=== PATIENT | female | born 1965 | race Hispanic/Latino ===

== ENCOUNTER → 2020-05-13 | Emergency (ER) | payer MEDICARE ==
[~2020-05-13] VITALS: Ht 157.5 cm; Wt 61.2 kg
[~2020-05-13] MED LIST: CIPRO500 MG PO; LIDOCAINE VISC 2% SOLN 15 ML UDC ONE; MAGNESIUM/ALUMINUM/SIMETHICONE 30 ML UDC ONE; METHYLPREDNISOLONE SOD SUCC 125 MG/2ML VIAL ONE; ONDANSETRON HCL INJ 2MG/ML 2ML 2 MG/ML VIAL ONE; SODIUM CHLORIDE 0.9% 1000ML 1,000 ML ONE
--- NOTE | 2020-05-13 18:55 | Emergency Department Note ---
History of Present Illnes History of Present Illness Chief Complaint: left low back pain History of Present Illness This is a 54 year old female who since was a 2 day history of gradually progressing left low back/flank pain similar to prior urinary tract infections. Denies any fever or chills. She denies any dysuria or hematuria. Denies any heavy lifting or stress activity. Nausea and all pain. They said she has GERD daily does not well-controlled medication. She has some nausea which is her baseline. Nausea and diarrhea constipation. Denies numbness tingling or weakness of her LEs. She denies any loss of bowel or bladder function Historian: Patient Arrival Mode: Car Rn Staffing Required: No Onset (how long ago): day(s) (2) Radiation: Reports non-radiation Severity: mild Duration (how long): day(s) (2) Timing of current episode: constant Progression: worsening Chronicity: recurrent Context: Denies recent illness Relieving factors: none Exacerbating factors: movement Associated symptoms: Reports denies other symptoms; Denies chest pain, Denies cough, Denies fever/chills Treatments prior to arrival: other (Tylenol) Past Medical/Family History Physician Review I have reviewed the patient's past medical and family history. Any updates have been documented here. Past Medical History Recent Fever: No Clinical Suspicion of Infectio: No New/Unexplained Change in Ment: No Past Medical History: Hypertension, Diabetes, Anxiety, Depression Other Medical History: h-pyloric, GERD Past Surgical History: Hysterectomy Other Surgery: hand x2 (trigger finger) Social History Smoking Cessation: Never Smoker Counseling Performed: No Alcohol Use: None Any Illegal Drug Use: No Physically hurt or threatened: No Other Any Pre-Existing Lines (PICC,: No Review of Systems Review of Systems Constitutional: Denies diaphoresis, Denies fever, Denies malaise, Denies weakness Cardiovascular: Denies chest pain, Denies edema, Denies palpitations, Denies syncope Respiratory: Denies chest congestion, Denies cough, Denies hemoptysis, Denies pain on inspiration, Denies pain with cough Gastrointestinal: Reports abdominal pain, Reports nausea (at baseline from GERD); Denies constipation, Denies diarrhea, Denies vomiting Genitourinary: Reports no symptoms, Reports other; Denies discharge (no vaginal discharge, no vaginal itching), Denies dysuria, Denies hematuria Musculoskeletal: Reports no symptoms, Reports back pain Integumentary: Denies rash Neurological: Reports no symptoms Hematological/Lymphatic: Denies easy bleeding, Denies easy bruising Physical Exam Related Data Triage Vital Signs Vital Signs Date Time Temp Pulse Resp B/P (MAP) Pulse Ox O2 Delivery O2 Flow Rate FiO2 05/13/20 18:19 98.4 93 17 114/71 98 Physical Exam CONSTITUTIONAL Constitutional: Present well-developed, Present well-nourished HENT HENT: Present normocephalic, Present atraumatic HENT L/R: Present left ext ear normal, Present right ext ear normal EYES Eyes: Reports conjunctivae normal NECK Neck: Present ROM normal, Present supple PULMONARY Pulmonary: Present effort normal, Present breath sounds normal; Absent respiratory distress CARDIOVASCULAR Cardiovascular: Present regular rhythm, Present heart sounds normal, Present capillary refill normal, Present normal rate GASTROINTESTINAL Abdominal: Present soft, Present nontender, Present bowel sounds normal, Present mass (no pulsatile mass), Present left CVA tenderness; Absent right CVA tenderness GENITOURINARY SKIN Skin: Absent rash MUSCULOSKELETAL Musculoskeletal: Present ROM normal; Absent edema NEUROLOGICAL Neurological: Present alert, Present oriented x 3, Present DTRs normal, Present no gross motor or sensory deficits, Present other (no pain with straight leg raise bilaterally.); Absent sensory deficit, Absent abnormal gait PSYCHOLOGICAL Psychological: Present mood/affect normal Results Laboratory Lab results reviewed: Yes Laboratory comments UA: trace eyal, otherwise negative Assessment & Plan Medical Decision Making MDM Differential diagnosis includes, but is not limited to: Kidney stone, urinary tract infection, pyelonephritis, AAA, lumbar strain/sprain, herniated disc. Patient with no pulsatile mass or other signs of AAA. Patient with no hematuria and does not clinically appear to have kidney stone. She states her symptoms are exactly like previous UTIs. Patient was only trace leukocytes, however given her symptoms willl treat for UTI and give strict return precautions and prompt follow-up. Assessment & Plan Final Impression: (1) UTI (urinary tract infection) (2) Low back pain Depart Disposition: HOME, SELF-CARE Last Vital Signs Date Time Temp Pulse Resp B/P (MAP) Pulse Ox O2 Delivery O2 Flow Rate FiO2 05/13/20 18:19 98.4 93 17 114/71 98 Home Meds Active Scripts Ciprofloxacin Hcl (CIPRO) 500 Mg Tablet, 500 MG PO BID, #28 MG 0 Refills Prov:ANDREEA SHI MD 05/13/20 ANDREEA SHI MD May 13, 2020 18:37
--- OUTSIDE RECORDS SUMMARY | 2020-05-13 21:39 | XMS REPORT | Clinical Summary ---
Author Author [facility] Organization [facility] Address Unknown Phone Unavailable Care Team Providers Care Chief Optometry Service Name Role Phone PCP Unavailable Allergies Comments Active Allergy Reactions Severity Noted Date Penicillins 10/16/2018 Medications End Date Status Medication Sig Dispensed Refills Start Date Active atropine (ISOPTO Instill 1 5 mL 0 ATROPINE) 1 % ophthalmic Drop in right 8 solutionIndications: eye 2 times Toxoplasma daily. chorioretinitis, Panuveitis of right eye Active predniSONE (DELTASONE) 10 Take 4 120 tablet 1 mg tabletIndications: tablets by 8 Panuveitis of right eye mouth daily. Active prednisoLONE acetate Instill 1 5 mL 1 10/01 (PRED FORTE) 1 % Drop in each 8 ophthalmic eye 4 times suspensionIndications: daily. Panuveitis of right eye Active atropine (ISOPTO Instill 1 15 mL 5 ATROPINE) 1 % ophthalmic Drop in right 9 solutionIndications: eye 2 times Toxoplasma daily. chorioretinitis Active prednisoLONE acetate Instill 1 5 mL 1 11/07 (PRED FORTE) 1 % Drop in right 9 ophthalmic eye 4 times suspensionIndications: daily. Uveitis Active predniSONE (DELTASONE) 20 Take 3 18 tablet 0 11/07/201 mg tabletIndications: tablets by 9 Toxoplasma mouth daily. chorioretinitis, Panuveitis of right eye Active azithromycin (ZITHROMAX) Take 1 tablet 20 tablet 0 250 mg tabletIndications: by mouth 9 Toxoplasma daily. 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 Last Filed Vital Signs Not on file Plan of Treatment Health Maintenance Due Date Last Done Comments DM HGBA1C (Yearly) 1966 DM Foot Exam (Yearly) 1984 DM Microalbumin Urine 1984 Scrn (Yearly) Cervical Cancer Scrn (3 1987 Yrs) Breast Cancer Scrn 2006 (Yearly) Colorectal Cancer Scrn 2016 Annual (FIT/FOBT) Age 50 to 75 DM Retinal Exam (Yearly) 10/16/2019 10/16/2018, 10/01/2018, 09/25/2018, Additional history exists IMM Influenza Seasonal 07/14/2020 Oct to December (>/= 19 yrs) Results Not on fileafter 05/13/2019 Insurance Type Payer Benefit Subscriber ID Effective Phone Address Plan / Dates Group [facility] SELF-PAY SELF-PAY xxxxxxxxx 2018- [phone] [id number] [place] [address]
--- OUTSIDE RECORDS SUMMARY | 2020-05-13 21:39 | XMS REPORT | Continuity of Care Document ---
Author Author [facility] t Organization [facility] Address 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 associated with type 2 diabetes mellitus Stable proliferative diabetic retinopath y of both eyes associated with type 2 diabetes mellitus Disease Active 2018-07-21 00:00: 00 [facility] Pain in right eye Pain in right eye Disease Active 2018-07-19 00:00:00 [facility] Uveitis Uveitis Disease Active [facility] Allergies, Adverse Reactions, Alerts Allergy Name Allergy Type Status Severity Reaction(s) Onset Date Inacti ve Date Treating Clinician Comments Source Penicillins DA Active SV 2019-10-30 00:00:00 [facility] metoclopramide DA Active SV 2019-10-30 00:00:00 [facility] Penicillins DA Active U 2019-07-19 00:00:00 [facility] metoclopramide DA Active U 2019-07-19 00:00:00 [facility] Penicillins DA Active SV 2019-07-12 00:00:00 [facility] metoclopramide DA Active SV 2019-07-12 00:00:00 [facility] Penicillins Propensity to adverse reactions to drug Active 2018-10-16 00:00:00 [facility] Penicillins DA Active SV 2018-07-18 00:00:00 [facility] metoclopramide DA Active SV 2018-07-18 00:00:00 [facility] Penicillins DA Active SV 2018-03-25 00:00:00 [facility] metoclopramide DA Active SV 2018-03-25 00:00:00 [facility] Social History Social Habit Start Date Stop Date Quantity Comments Source Sex Assigned At [facility] Smoking Status Start Date Stop Date Source Never smoker [facility] Medications Ordered Medication Name Filled Medication Name Start Date Stop Da te Current Medication? 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 [facility] prednisoLONE acetate (PRED FORTE) 1 % ophthalmic suspension 2018-11-07 00:00:00 Yes Uveitis 1[drp] Instill 1 Drop in right eye 4 times daily. [facility] predniSONE (DELTASONE) 20 mg tablet 2018-11-07 00:00:00 Yes Panuveitis of right eye 60mg QD Take 3 tablets by mouth daily. 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 [facility] predniSONE (DELTASONE) 10 mg tablet 2018-10-01 00:00:00 Yes Panuveitis of right eye 40mg QD Take 4 tablets by mouth daily. [facility] prednisoLONE acetate (PRED FORTE) 1 % ophthalmic suspension 2018-10-01 00:00:00 Yes Panuveitis of right eye 1[drp] Instill 1 Drop in each eye 4 times daily. [facility] atropine (ISOPTO ATROPINE) 1 % ophthalmic solution 2018-09 00:00:00 Yes Panuveitis of right eye 1[drp] Q.5D Instill 1 Drop in right eye 2 times daily. [facility] Procedures This patient has no known procedures. Plan of Care Planned Activity Planned Date Details Comments Source Future Scheduled Test 2020-07-14 00:00:00 IMM Influenza Seas onal Jul to December (>/= 19 yrs) [code = IMM Influenza Seasonal Jul to December (>/= 19 yrs)] [facility] Scheduled Test 2019-10-16 00:00:00 DM Retinal Exam (Y early) [code = DM Retinal Exam (Yearly)] [facility] Scheduled Test 2016 00:00:00 Screening for kwabena gnant neoplasm of colon (procedure) [code = 034782613] [facility] Scheduled Test 2006 00:00:00 Breast Cancer Scrn (Yearly) [code = Breast Cancer Scrn (Yearly)] [facility] Scheduled Test 1987 00:00:00 Screening for kwabena gnant neoplasm of cervix (procedure) [code = 001286459] [facility] Scheduled Test 1984 00:00:00 DM Foot Exam (Year ly) [code = DM Foot Exam (Yearly)] [facility] Scheduled Test 1984 00:00:00 Urine screening fo r protein (procedure) [code = 489953535] [facility] Scheduled Test 1966 00:00:00 Hemoglobin A1c jaqueline surement (procedure) [code = 20918474] [facility] Encounters Start Date/Time End Date/Time Encounter Type Admission Type [facility] Care Department Encounter ID Source 2018-11-07 09:53:31 2018-11-07 09:53:31 Emergency [facility] MED [id number] [facility] 2018-11-07 00:00:00 2018-11-07 00:00:00 Emergency [facility] [id number] [facility] 2018-10-29 00:00:00 2018-10-29 00:00:00 Outpatient [facility] [id number] [facility] 2018-10-16 10:50:01 2018-10-16 10:50:01 Outpatient [facility] [id number] [facility] 2018-10-16 00:00:00 2018-10-16 00:00:00 Outpatient [facility] [id number] [facility] 2018-10-01 15:39:09 2018-10-01 15:39:09 Outpatient [facility] [id number] [facility] 2018-10-01 12:40:57 2018-10-01 12:40:57 Outpatient [facility] [id number] [facility] 2018-09-25 11:01:37 2018-09-25 11:01:37 Outpatient [facility] [id number] [facility] 2018-09-19 14:07:23 2018-09-19 14:07:23 Outpatient [facility] [id number] [facility] 2018-09-18 16:23:31 2018-09-18 16:23:31 Outpatient [facility] [id number] [facility] 2018-09-11 10:30:44 2018-09-11 10:30:44 Outpatient [facility] [id number] [facility] 2018-09-11 10:30:40 2018-09-11 10:30:40 Outpatient [facility] [id number] [facility] 2018-08-28 09:53:20 2018-08-28 09:53:20 Outpatient [facility] [id number] [facility] 2018-08-28 09:22:42 2018-08-28 09:22:42 Outpatient [facility] [id number] [facility] 2018-08-21 11:02:19 2018-08-21 11:02:19 Outpatient [facility] [id number] [facility] 2018-08-21 11:02:17 2018-08-21 11:02:17 Outpatient [facility] [id number] [facility] 2018-08-21 00:00:00 2018-08-21 00:00:00 Outpatient [facility] [id number] [facility] 2018-08-21 00:00:00 2018-08-21 00:00:00 Outpatient [facility] [id number] [facility] 2018-08-14 12:20:23 2018-08-14 12:20:23 Outpatient [facility] [id number] [facility] 2018-08-14 10:12:49 2018-08-14 10:12:49 Outpatient [facility] [id number] [facility] 2018-08-14 09:00:01 2018-08-14 09:00:01 Outpatient [facility] [id number] [facility] 2018-08-14 00:00:00 2018-08-14 00:00:00 Outpatient [facility] [id number] [facility] 2018-08-14 00:00:00 2018-08-14 00:00:00 Outpatient [facility] [id number] [facility] 2018-07-25 15:25:08 2018-07-25 15:25:08 Outpatient [facility] [id number] [facility] 2018-07-25 14:28:51 2018-07-25 14:28:51 Outpatient [facility] [id number] [facility] 2018-07-21 14:45:54 2018-07-21 14:45:54 Outpatient [facility] [id number] [facility] 2018-07-18 20:04:00 2018-07-18 20:04:00 Emergency [facility] [id number] [facility] Results Test Description Test Time Test Comments Results Result Comments Source CT ABD/PEL WO CONTRAST-HOPD 2020-04-09 20:05:00 [place] [address] Patient Name: MALAIKA GIBBS MR #: [id number] : 1965 Age/Sex: 54/F Req #: [id number] Adm Physician: Ordered by: ASHLIE ARROYO MD Report #: [id number] Location: [facility] Room/Bed: Procedure: [id number] HOPD/CT ABD/PEL WO CONTRAST-HOPD Exam Date: 04/09/20 Exam Time: 1922 REPORT STATUS: Signed EXAMINATION: CT of the abdomen and pelvis without contrast. TECHNIQUE: Spiral CT images of the abdomen and pelvis were performed from the lung bases to the lesser trochanters. No intravenous contrast was given per renal stone protocol. Coronal and sagittal reformatted images were obtained. COMPARISON: None. CLINICAL HISTORY:Abdominal pain, left flank pain since 3 hours ago DISCUSSION: ABSENCE OF INTRAVENOUS CONTRAST DECREASES SENSITIVITY FOR DETECTION OF FOCAL LESIONS AND VASCULAR PATHOLOGY. ABDOMEN/PELVIS: LOWER THORAX: Lung bases are clear. Atherosclerotic calcification of the coronary arteries. HEPATOBILIARY: No focal hepatic lesions. No intra or extrahepatic biliary ductal dilation. GALLBLADDER: Cholecystectomy clips. SPLEEN: No splenomegaly. PANCREAS: No focal masses or ductal dilatation. ADRENALS: No adrenal nodules. KIDNEYS/URETERS: No renal or ureteral calculi, hydronephrosis or obstruction. No contour abnormalities or significant perinephric stranding. Extensive renal vascular calcifications. PELVIC ORGANS/BLADDER: Bladder is unremarkable, without focal lesions, wall thickening or stones. Uterus is absent. Multiple pelvic phleboliths. No adnexal masses. PERITONEUM/RETROPERITONEUM: No free air or fluid. LYMPH NODES: No intra-abdominal,retroperitoneal, pelvic or inguinal lymphadenopathy. VESSELS: Marked atherosclerotic calcification of the aortic branches, particularly celiac trunk and splenic artery, SMA, SEBASTIÁN and iliac vessels, as well as bilateral renal arteries. GI TRACT: No bowel dilation or evidence of obstruction. Appendix is well identified and normal in caliber. No pericolonic inflammatory changes. No wall thickening. Intraluminal 1.5 cm fat density structures in the distal small bowel (series 2, images 47 and 46), may represent small lipomas or pill material. 9 mm oval shaped intraluminal hyperdensities in the distal small bowel (series 2, image 44) likely represent undigested pill material. BONES AND SOFT TISSUES: No aggressive lytic or suspicious focal sclerotic lesions soft tissues are grossly unremarkable.. IMPRESSION: 1. No renal, ureteral or bladder calculi, hydronephrosis or obstruction. No acute abdominopelvic abnormalities in this noncontrast exam. 2.. Marked atherosclerotic calcification of the aortic branches, particularly the celiac trunk, splenic artery, SMA, SEBASTIÁN and iliac vessels, greater than expected for the patient's age. Signed by: Dr. Daniel Perez M.D. on 04/09/2020 8:12 PM Dictated By: DANIEL PEREZ MD Elect ronically Signed By: DANIEL PEREZ MD on 04/09/202011 Transcribed By: YAYO on 04/09/202011 COPY TO: ASHLIE ARROYO MD GLUBED 2020-03-17 16:46:00 Test Item GLUBED (test code = GLUBED) 102 mg/dL 74-106 N Performed by certified de ionizer operator at [facility] [id number] 15:48:00* Test Item Value Reference Range Interpretation Comments GLUBED (test code = GLUBED) 264 mg/dL 74-106 H Performed by certified de ionizer operator at [facility] - MRI BRAIN W/O [id number] 12:20:00 FAX: Adina Ortega [phone] [place]: St: [facility] FAX: Harsh Cruz II, MD Name: MALAIKA GIBBS [employer] : 1965 Age/S: 54/F [address] [facility] Unit #: [id number] Loc: [address] [place] [address] Phys: Adina Stoddard MD Acct: [id number] Dis Date: Status: ADM IN PHONE #: [phone] Exam Date: 03/17/2020 1150 FAX #: [phone] Reason: TIA EXAMS: CPT CODE: [id number] MRI BRAIN W/O CONTRAST 16752 HISTORY: TIA. COMPARISON: Head CT from previous day. Location: [facility]. MRI brain without contrast: No acute territorial vascular or acute lacunar infarction. No MR e vidence for hemorrhage. No extra-axial fluid collections. Mild white matte r ischemic disease in the midbrain and scattered lesions in the centrum se miovale white matter. No herniation, hydrocephalus or midline shift. Fourt h ventricle is midline. The expected flow-voids are noted within t he major intracranial vasculature. VII and VIII nerve complex are symmetri amaury and normal. Mastoid air cells are clear. Sinuses are clear with mucosa l thickening of the ethmoid air cells. Intraorbital contents are unremarka ble. Midbrain, mayra and medulla are without mass effect. Symmetric al hippocampi without mesial temporal sclerosis. No parenchymal mass on this noncontrast study. No cerebellar ectopia. Pituitary gland, optic chiasm and corpus callosum are normal. Clivus demonstrated normal marrow s ignal. IMPRESSION: No acute territorial vascul ar or acute lacunar infarction. Mild chronic white matter ischemic disea se. at 1220 Reported and signed by: Simon Blum M.D. CC: Adina Stoddard MD; Harsh Cruz II, MD Technologist: TERRIE FINCH,RT - MRI [place] Date/Time/By: 03/17/2020 ( 1220) : By: [email or web address] Orig Print D/T: S: 03/17/2020 (3010) PAGE 1 Signed Report [id number] 05:52:00* Test Item Value Reference Range Interpretation Comments GLUBED (test code = GLUBED) 274 mg/dL 74-106 H Performed by certified de ionizer operator at [facility] LIPID PROFILE (CORONARY RISK)2020-03-17 04:57:00* Test Item Value Reference Range Interpretation Comments TRIGLYCERIDES (test code = TRIG) 234 mg/dL 20-150 H CHOLESTEROL (test code = CHOL) 230 mg/dL 0-200 H CHOLESTEROL/HDL RATIO (test code = CHOLHDL) 4.0 RATIO 0-4.9 N RISK ASSOCIATED WITH CHOL/HDL RATIOS: Risk Male Female1/2 AVERAGE 3.43 3.27AVERAGE 4.97 4.442X AVERAGE 9.55 7.053X AVERAGE 23.39 11.04 REFERENCE VALUE IS RELATED TO RISK LEVELS ASRECOMMENDED BY THE MARY. HEART, LUNG, AND BLOOD INST. HDL CHOLESTEROL (test code = HDL) 48 mg/dL 40-60 N LIPOPROTEIN LDL (test code = LDL) 147 mg/dL 100-129 H RN PERSONNEL, CONTACT PHYSICIAN IMMEDIATELY IF THIS IS A STROKE, AMI OR CAROTID STENOSIS PATIENT WHEN THE LDL >100 (1ST OCCURENCE, THIS ADMISSION) Reference Interval: mg/dL mmol/L Optimal <100 <2.6Near/above optimal 100-129 2.6- 3.3Borderline High 130-159 3.4-4.1High 160-189 4.1-4.9Very High >=190 >=4.9========= This LDL result is a direct measurement.========= [id number] 04:30:00* Test Item Value Reference Range Interpretation Comments GLYCOSYLATED HEMOGLOBIN (HA1C) (test code = GLYHGB) 9.5 % HbA1 SUGGESTED DIAGNOSIS: HbA1C (%) Diabetic >6.4Prediabetes 5.7 - 6.4Normal <5.7 ESTIMATED AVERAGE GLUCOSE (test code = EAG) 226 MG/DL [id number] 23:10:00* Test Item Value Reference Range Interpretation Comments TROPONIN-I (test code = TROPI) <0.015 ng/mL 0-0.045 N COMMENTS TO DIGITAL IMAGING TECHNICIAN: COLLECT 3 HOURS AFTER PREVIOUS [id number] 21:41:00* Test Item Value Reference Range Interpretation Comments TROPONIN-I (test code = TROPI) <0.015 ng/mL 0-0.045 N COMMENTS TO DIGITAL IMAGING TECHNICIAN: COLLECT 3 HOURS AFTER PREVIOUS [id number] 20:25:00* Test Item Value Reference Range Interpretation Comments GLUBED (test code = GLUBED) 197 mg/dL 74-106 H Performed by certified de ionizer operator at [facility] [id number] 16:38:00* Test Item Value Reference Range Interpretation Comments GLUBED (test code = GLUBED) 184 mg/dL 74-106 H Performed by certified de ionizer operator at [facility] [id number] 14:14:00* Test Item Value Reference Range Interpretation Comments GLUBED (test code = GLUBED) 354 mg/dL 74-106 H Performed by certified de ionizer operator at [facility] - XR CHEST 1 [id number] 14:04:00 FAX: Yoseph Addison DO [place]: B St: ADM Name: MALAIKA BEDOYA [employer] : [birth year] Age/S: 54/F [address] [facility] Unit #: [id number] Loc: [place] [address] Phys: Yoseph Addison DO Acct: [id number] Dis Date: Status: ADM IN PHONE #: [phone] Exam Date: 03/16/2020 1340 FAX #: [phone] Reason: CODE STROKE EXAMS: CPT CODE: [id number] XR CHEST 1 V 64160 HISTORY: Stroke. COM PARISON: November 14, 2019 Location: [facility]. No acute in filtrates, effusion or congestion is noted. The cardiac and medias tinal silhouette are within normal limits. IMPRESSION: No acute infiltrates, effusion or congestion. Electronica lly Signed by Antonio Blum on 03/16/2020 at 1404 Re ported and signed by: Simon Blum M.D. CC: Cadence Addison DO Technologist: Dunia Do, RT (R); Pari Asencio RT(R) [place] Date/Time/By: 03/16/2020 (1404) : By : [email or web address] Orig Print D/T: S: 03/16/2020 (4112) PAGE 1 Signed Report BASIC METABOLIC [id number] 13:18:00* Test Item Value Reference Range Interpretation Comments SODIUM (test code = NA) 136 mmol/L 136-145 N POTASSIUM (test code = K) 4.3 mmol/L 3.5-5.1 N CHLORIDE (test code = CL) 101.0 mmol/L 98-107 N CARBON DIOXIDE (test code = CO2) 27.0 mmol/L 21-32 N ANION GAP (test code = GAP) 12.3 10-20 N GLUCOSE (test code = GLU) 417 mg/dL 74-106 H BLOOD UREA NITROGEN (test code = BUN) 18 mg/dL 7-18 N GLOMERULAR FILTRATION RATE (test code = GFR) > 60 mL/min >=60 Estimated GFR by using Modified MDRD formula.Chronic kidney disease is defined as either kidney damageor GFR <60 mL/min/1.73 m2 for >3 months. CREATININE (test code = CREAT) 0.80 mg/dL 0.55-1.02 N Note change in reference range due to change in reagent. BUN/CREATININE RATIO (test code = BUN/CREA) 22.8 10-20 H CALCIUM (test code = CA) 8.9 mg/dL 8.5-10.1 N [id number] 13:18:00* Test Item Value Reference Range Interpretation Comments TROPONIN-I (test code = TROPI) <0.015 ng/mL 0-0.045 N BASIC METABOLIC [id number] 13:16:00* Test Item Value Reference Range Interpretation Comments SODIUM (test code = NA) 136 mmol/L 136-145 N POTASSIUM (test code = K) 4.3 mmol/L 3.5-5.1 N CHLORIDE (test code = CL) 101.0 mmol/L 98-107 N CARBON DIOXIDE (test code = CO2) mmol/L 21-32 ANION GAP (test code = GAP) 10-20 GLUCOSE (test code = GLU) mg/dL 74-106 BLOOD UREA NITROGEN (test code = BUN) mg/dL 7-18 GLOMERULAR FILTRATION RATE (test code = GFR) mL/min >=60 CREATININE (test code = CREAT) mg/dL 0.55-1.02 BUN/CREATININE RATIO (test code = BUN/CREA) 10-20 CALCIUM (test code = CA) mg/dL 8.5-10.1 [id number] 13:16:00* Test Item Value Reference Range Interpretation Comments TROPONIN-I (test code = TROPI) ng/mL 0-0.045 - CTA CHEST FOR [id number] 13:03:00 Name: MALAIKA GIBBS [employer] : 1965 Age/S: 54 / F [address] [facility] Unit #: [id number] Loc: [place] [address] Phys: Yoseph Addison DO Acct: [id number] Dis Date: Status: REG ER PHONE #: [phone] Exam Date: 03/16/2020 1229 FAX #: [phone] Reason: right sided tingling/chest pain - evaluate aort EXAMS: CPT CODE: [id number] [place] [address] HISTORY: Right chest pain/evaluate aorta. COMPARISON: None available. Location: [facility]. CTA CHEST: 3-D images NOT available. 100 mL of Isovue 370. Automated exposure control. No pulmonary embolism. Unremarkable aorta without aneurysm or dissection. Well-opacified neck vasculature with exception of left vertebral artery which is not visible. Well-opacified SVC. Unremarkable thyroid glands. Esophageal wall is mildly thickened likely from underdistention especially distally. No pathologic adenopathy. Cardiac silhouette is normal without pericardial effusion. Visualized upper abdomen is unremarkable. Subcutaneous tissues and musculature are normal in appearance. No lytic or blastic lesions are not ed within the bony skeleton. DJD. The lungs are clear of infiltrat es, effusion or congestion. No bronchiectasis, honeycombing or fibrosis or endobronchial lesions. IMPRESSION: No acute i ntrathoracic pathology without aortic dissection or aneurysm. No pulmona ry embolism either. Electronically Signed by Antonio Blum on at 1303 Reported and signed by: Suzie Pierce CC: Yoseph Addison DO Techno logist:Mary Krishna,RT(R),CT CTDI: DLP: Trnscb Date/Time : 03/16/2020 (1303) t.[email or web address] Orig Print D/T: S: 03/16/20 20 (8727) PAGE 1 Signed Report CBC W/AUTO [id number] 12:52:00* Test Item Value Reference Range Interpretation Comments WHITE BLOOD CELL (test code = WBC) 7.5 K/mm3 4.5-12.5 N RED BLOOD CELL (test code = RBC) 3.78 mill/mm3 3.7-5.2 N HEMOGLOBIN (test code = HGB) 10.9 gram/dL 11.5-15.5 L HEMATOCRIT (test code = HCT) 32.3 % 36.0-46.0 L MEAN CELL VOLUME (test code = MCV) 85.4 fL 80-98 N MEAN CELL HGB (test code = MCH) 28.8 picogram 27.0-33.0 N MEAN CELL HGB CONCETRATION (test code = MCHC) 33.7 gram/dL 33.0-36. 0 N RED CELL DISTRIBUTION WIDTH (test code = RDW) 12.6 % 11.6-16. 2 N RED CELL DISTRIBUTION WIDTH SD (test code = RDW-SD) 38.8 fL 37 .0-51.0 N PLATELET COUNT (test code = PLT) 324 K/mm3 150-450 N MEAN PLATELET VOLUME (test code = MPV) 10.5 fL 6.7-11.0 N NEUTROPHIL % (test code = NT%) 67.9 % 39.0-69.0 N IMMATURE GRANULOCYTE % (test code = IG%) 0.4 % 0.0-5.0 N LYMPHOCYTE % (test code = LY%) 18.0 % 25.0-55.0 L MONOCYTE % (test code = MO%) 6.5 % 0.0-10.0 N EOSINOPHIL % (test code = EO%) 6.0 % 0.0-5.0 H BASOPHIL % (test code = BA%) 1.2 % 0.0-1.0 H NUCLEATED RBC % (test code = NRBC%) 0.0 % 0-0 N NEUTROPHIL # (test code = NT#) 5.11 K/mm3 1.8-7.7 N IMMATURE GRANULOCYTE # (test code = IG#) 0.03 x10 3/uL 0-0.03 N LYMPHOCYTE # (test code = LY#) 1.35 K/mm3 1.0-5.0 N MONOCYTE # (test code = MO#) 0.49 K/mm3 0-0.8 N EOSINOPHIL # (test code = EO#) 0.45 K/mm3 0.0-0.5 N BASOPHIL # (test code = BA#) 0.09 K/mm3 0.0-0.2 N NUCLEATED RBC # (test code = NRBC#) 0.00 K/mm3 0.0-0.1 N MANUAL DIFF REQUIRED (test code = MDIFF) NO PROTHROMBIN [id number] 12:51:00* Test Item Value Reference Range Interpretation Comments PROTHROMBIN TIME PATIENT (test code = PTP) 12.2 seconds 9.0-14.0 N INTERNATIONAL NORMAL RATIO (test code = INR) 1.0 0.8-1.2 N The therapeutic range for oral anticoagulant therapy formost indications is an international normalized ratio (INR)of between 2.0 and 3.0. The recommended therapeutic INRrange for various clinical situations is listed below: Clinical Situation INR range Pulmonary e mbolism treatment (2.0-3.0)Venous thrombosis treatmentVenous thrombosis prophylaxis (high risk surgery)Prevention of systemic embolism from: Acute myocardial infarction Valvular heart disease Atrial fibrillation Mechanical prosthetic heart valves (2.5-3.5) IS PATIENT ON ANTICOAGULANTS? NTHROMBOPLASTIN TIME [id number] 12:51:00* Test Item Value Reference Range Interpretation Comments THROMBOPLASTIN TIME PARTIAL (test code = PTT) 34.9 seconds 23.0-37. 0 N IS PATIENT ON ANTICOAGULANTS? N- CT HEAD/BRAIN W/O [id number] 12:34:00 Name: MALAIKA GIBBS [employer] : 1965 Age/S: 54 / F [address] [facility] Unit #: [id number] Loc: [place] [address] Phys: Yoseph Addison DO Acct: [id number] Dis Date: Status: PRE ER PHONE #: Exam Date: 03/16/2020 1229 FAX #: Reason: right sided tingling/headache - arm and face EXAMS: CPT CODE: [id number] CT HEAD/BRAIN W/O CONT 54800 HISTORY: Right-sided ting ling and headache. COMPARISON: None available. Locat ion: [facility]. CT brain without contrast: Automated exposure control. No acute intracranial bleeds or extra-axial collections are noted. No acute territorial vascular infarction is noted. The sulci , gyri, ventricles and subarachnoid spaces and the basilar cisterns are no rmal for patient's age. No herniation or hydrocephalus or midline shift is noted. Mild periventricular ischemic gliosis is noted. Age-approp riate atrophy is noted as well. Portions of the visualized p aranasal sinuses are normal. No obvious bony calvarial defect is n oted. IMPRESSION: No acute intracranial bleeds or extra-axial collections. No acute territorial vascular inf arction. No herniation or hydrocephalus or midline shift. Chronic white matter ischemic disease and atrophy . These findings were discussed with Dr. Addison at 12:32 PM. FOR INTERNAL CODING PURPOSES ONLY RE SULT CODE: CVR Electronically Signed by Antonio Blum on 020 at 1234 Reported and signed by: Simon Blum M.D. PAGE 1 Signed Report (CONTINUE D) Name: MALAIKA GIBBS [facility] [employer] : 1965 Age/S: 54 / F [address] [facility] Unit #: [id number] Loc: [place] [address] Phys: Sidney Addison DO Acct: [id number] Dis Date: Status: PRE ER PHONE #: [phone] Exam Date: 03/16/2020 1229 FAX #: Reason: right sided tingling/headache - arm and face EXAMS: CPT CODE: [id number] CT HEAD/BRAIN W/O CONT 07242 <Continued> CC: Yoseph Addison DO Technologist:Mary Krishna,RT(R),CT CTDI: DLP: Trnscb Date/Time: 03/16/2020 (1234) [email or web address] Orig Print D/T: S: 03/16/2020 (9889) PAGE 2 Signed Report [id number] 18:33:00* Test Item Value Reference Range Interpretation Comments TROPONIN-I (test code = TROPI) <0.015 ng/mL 0-0.045 N BASIC METABOLIC [id number] 16:17:00* Test Item Value Reference Range Interpretation Comments SODIUM (test code = NA) 138 mmol/L 136-145 N POTASSIUM (test code = K) 4.2 mmol/L 3.5-5.1 N CHLORIDE (test code = CL) 108.0 mmol/L 98-107 H CARBON DIOXIDE (test code = CO2) 23.0 mmol/L 21-32 N ANION GAP (test code = GAP) 11.2 10-20 N GLUCOSE (test code = GLU) 289 mg/dL 74-106 H BLOOD UREA NITROGEN (test code = BUN) 21 mg/dL 7-18 H GLOMERULAR FILTRATION RATE (test code = GFR) 52 mL/min >=60 Estimated GFR by using Modified MDRD formula.Chronic kidney disease is defined as either kidney damageor GFR <60 mL/min/1.73 m2 for >3 months. CREATININE (test code = CREAT) 1.10 mg/dL 0.55-1.02 H Note change in reference range due to change in reagent. BUN/CREATININE RATIO (test code = BUN/CREA) 19.1 10-20 N CALCIUM (test code = CA) 9.4 mg/dL 8.5-10.1 N HEPATIC FUNCTION [id number] 16:17:00* Test Item Value Reference Range Interpretation Comments TOTAL PROTEIN (test code = PROT) 7.6 gram/dL 6.4-8.2 N ALBUMIN (test code = ALB) 4.1 g/dL 3.4-5.0 N GLOBULIN (test code = GLOB) 3.5 gram/dL 2.7-4.2 N ALBUMIN/GLOBULIN RATIO (test code = A/G) 1.2 0.75-1.50 N BILIRUBIN TOTAL (test code = BILT) 0.20 mg/dL 0.0-1.0 N BILIRUBIN DIRECT (test code = BILD) 0.09 mg/dL 0.0-0.20 N SGOT/AST (test code = AST) 9 IUnit/L 15-37 L SGPT/ALT (test code = ALT) 21 IUnit/L 12-78 N ALKALINE PHOSPHATASE TOTAL (test code = ALKP) 112 IUnit/L 45-117 N Note change in reference range due to change in reagent. [id number] 16:17:00* Test Item Value Reference Range Interpretation Comments LIPASE (test code = LIP) 174 U/L 73.0-393.0 N [id number] 16:17:00* Test Item Value Reference Range Interpretation Comments MAGNESIUM (test code = MAG) 1.8 mg/dL 1.8-2.4 N [id number] 16:17:00* Test Item Value Reference Range Interpretation Comments TROPONIN-I (test code = TROPI) 0.036 ng/mL 0-0.045 N BASIC METABOLIC [id number] 16:04:00* Test Item Value Reference Range Interpretation Comments SODIUM (test code = NA) 138 mmol/L 136-145 N POTASSIUM (test code = K) 4.2 mmol/L 3.5-5.1 N CHLORIDE (test code = CL) 108.0 mmol/L 98-107 H CARBON DIOXIDE (test code = CO2) mmol/L 21-32 ANION GAP (test code = GAP) 10-20 GLUCOSE (test code = GLU) mg/dL 74-106 BLOOD UREA NITROGEN (test code = BUN) mg/dL 7-18 GLOMERULAR FILTRATION RATE (test code = GFR) mL/min >=60 CREATININE (test code = CREAT) mg/dL 0.55-1.02 BUN/CREATININE RATIO (test code = BUN/CREA) 10-20 CALCIUM (test code = CA) mg/dL 8.5-10.1 HEPATIC FUNCTION [id number] 16:04:00* Test Item Value Reference Range Interpretation Comments TOTAL PROTEIN (test code = PROT) gram/dL 6.4-8.2 ALBUMIN (test code = ALB) g/dL 3.4-5.0 GLOBULIN (test code = GLOB) gram/dL 2.7-4.2 ALBUMIN/GLOBULIN RATIO (test code = A/G) 0.75-1.50 BILIRUBIN TOTAL (test code = BILT) mg/dL 0.0-1.0 BILIRUBIN DIRECT (test code = BILD) mg/dL 0.0-0.20 SGOT/AST (test code = AST) IUnit/L 15-37 SGPT/ALT (test code = ALT) IUnit/L 12-78 ALKALINE PHOSPHATASE TOTAL (test code = ALKP) IUnit/L 45-117 [id number] 16:04:00* Test Item Value Reference Range Interpretation Comments LIPASE (test code = LIP) U/L 73.0-393.0 [id number] 16:04:00* Test Item Value Reference Range Interpretation Comments MAGNESIUM (test code = MAG) mg/dL 1.8-2.4 [id number] 16:04:00* Test Item Value Reference Range Interpretation Comments TROPONIN-I (test code = TROPI) ng/mL 0-0.045 - XR CHEST 1 [id number] 16:02:00 FAX: Marley Benitez MD [phone] [place]: St: REG Name: MALAIKA BEDOYA [facility] : [birth year] Age/S: 54/F [address] [facility] Unit #: [id number] Loc: [place] [address] Phys: Marley Benitez MD Acct: [id number] Dis Date: Status: REG ER PHONE #: [phone] Exam Date: 11/14/2019 1530 FAX #: [phone] Reason: CHEST PAIN EXAMS: CPT CODE: [id number] XR CHEST 1 V 74519 REASON FOR EXAM: CHEST PAIN Exam Order Date: 11/14/2019 3:11 PM Ordering M.D.: Suzie Benitez MD PROCEDURE: - XR CHEST 1 V AMADOU RISON: None FINDINGS: The lungs are clear. There is no pl eural effusion or pneumothorax. Pulmonary vascularity is within normal bronson its. Cardiomediastinal silhouette is normal in size for technique. The mediastinal contours are within normal limits. Musculos keletal structures are within normal limits. The visualized upper abdomen is within normal limits. IMPRESSION: No acute cardiopulmonary process. Location: [facility] Elect ronically Signed by Adam Jewell MD on 11/14/2019 at 1602 Reported and signed by: Adam Jewell MD CC: Marley Benitez MD Technologist: LE GORDILLO RT (R) Trnscrd Date/Time/By: 11/14/2019 (2152) : By: [email or web address] Orig Print D/T: S: 11/14/2019 (9724) PAGE 1 Signed Report PROTHROMBIN TIME 2019-11-14 16:00:00* Test Item Value Reference Range Interpretation Comments PROTHROMBIN TIME PATIENT (test code = PTP) 10.8 seconds 9.0-14.0 N INTERNATIONAL NORMAL RATIO (test code = INR) 0.9 0.8-1.2 N The therapeutic range for oral anticoagulant therapy formost indications is an international normalized ratio (INR)of between 2.0 and 3.0. The recommended therapeutic INRrange for various clinical situations is listed below: Clinical Situation INR range Pulmonary e mbolism treatment (2.0-3.0)Venous thrombosis treatmentVenous thrombosis prophylaxis (high risk surgery)Prevention of systemic embolism from: Acute myocardial infarction Valvular heart disease Atrial fibrillation Mechanical prosthetic heart valves (2.5-3.5) IS PATIENT ON ANTICOAGULANTS? NTHROMBOPLASTIN TIME [id number] 16:00:00* Test Item Value Reference Range Interpretation Comments THROMBOPLASTIN TIME PARTIAL (test code = PTT) 34.3 seconds 25.0-36. 5 N IS PATIENT ON ANTICOAGULANTS? NCBC W/O [id number] 15:50:00* Test Item Value Reference Range Interpretation Comments WHITE BLOOD CELL (test code = WBC) 8.3 K/mm3 4.5-12.5 N RED BLOOD CELL (test code = RBC) 4.23 mill/mm3 3.7-5.2 N HEMOGLOBIN (test code = HGB) 12.1 gram/dL 11.5-15.5 N HEMATOCRIT (test code = HCT) 34.9 % 36.0-46.0 L MEAN CELL VOLUME (test code = MCV) 82.5 fL 80-98 N MEAN CELL HGB (test code = MCH) 28.6 picogram 27.0-33.0 N MEAN CELL HGB CONCETRATION (test code = MCHC) 34.7 gram/dL 33.0-36. 0 N RED CELL DISTRIBUTION WIDTH (test code = RDW) 12.3 % 11.6-16. 2 N PLATELET COUNT (test code = PLT) 407 K/mm3 150-450 N MEAN PLATELET VOLUME (test code = MPV) 10.3 fL 6.7-11.0 N TROPONIN I [id number] 15:50:00* Test Item Value Reference Range Interpretation Comments TROPONIN I RAPID (test code = TROPIRAP) 0.01 ng/mL <0.08 Please Note New Reference Range 0.00-0.079 ng/mL - Negative>or= 0.08 ng/mL - Positive The use of serial sampling and testing protocol is arecommended practice.An elevated troponin level alone is often not sufficient fordiagnosis of myocardial infarction. Troponin results obtained by different assays may vary.Evaluation of the extent of myocardial damage based onincrease of troponin would be valid only if similarmethodology is used. CT ABD/PEL WITH [id number] 13:43:00 [place] [address] Patient Name: MALAIKA GIBBS MR #: [id number] : 1965 Age/Sex: 54/M Req #: [id number] Adm Physician: Ordered by: GISELA VAZQUEZ MD Report #: [id number] Location: [facility] Room/Bed: Procedure: [id number] HOPD/CT ABD/PEL WITH CONTRAST-HOPD Exam Date: 11/01/19 Exam Time: 1253 REPORT STATU S: Signed EXAM: CT Abdomen and Pelvis WITH contrast INDICATION: BELLY BUTTON PAIN X 3 DAYS 20191101 COMPARISON: None. TECH NIQUE: Abdomen and pelvis were scanned utilizing a multidetector helical scann er from the lung base to the pubic symphysis after administration of IV contra st. Coronal and sagittal reformations were obtained. Routine protocol was perf ormed. Scan was performed when during portal venous phase. IV CONT RAST: 100 mL of Isovue-370 ORAL CONTRAST: None RADIA TION DOSE: Total DLP: 602 mGy*cm Estimated effective dose: (DLP x 0.015 x size factor) mSv COMPLICATIONS: None FINDINGS: LINES and TUBES: None. LOWER THORAX: Unremarkable HEPATOBILIARY: No focal hepatic lesions. No biliary ductal dilation. GALLBLADDER: Cholec ystectomy. SPLEEN: No splenomegaly. PANCREAS: No focal masses or duct al dilatation. ADRENALS: No adrenal nodules KIDNEYS/URETERS: Kid neys enhance symmetrically. No hydronephrosis. No cystic or solid mass lesion s. No stones. Mild bilateral pelviectasis without obstructing calcified stone s. GI TRACT: No abnormal distention, wall thickening, or evidence of bowel obstruction. Large amount of retained stool throughout the colon. Appendix is normal. PELVIC ORGANS/BLADDER: Unremarkable. LYMPH NODES: No lymph adenopathy. VESSELS: Mild vascular calcifications of the splenic and mesent josselin artery without significant stenosis. The abdominal aorta and pelvic arter ies are normal in caliber and associated with mild nonobstructing atherosclero tic calcifications. PERITONEUM / RETROPERITONEUM: No free air or fluid. BONES: Unremarkable. SOFT TISSUES: Unremarkable. IMPRE SSION: 1. Large amount of retained stool throughout the colon suggestive of constipation. No bowel dilatation or obstruction. 2. Otherwise, no acute ab normalities in the abdomen and pelvis. Signed by: Dr. Katharine Kim M.D. on 11/01/2019 1:47 PM Dictated By: KATHARINE PICKARD MD El ectronically Signed By: KATHARINE PICKARD MD on 11/01/191346 Transcribed By: YAYO on 11/01/191346 COPY TO: GISELA VAZQUEZ MD BASIC METABOLIC [id number] 14:31:00* Test Item Value Reference Range Interpretation Comments SODIUM (test code = NA) 136 mmol/L 136-145 N POTASSIUM (test code = K) 4.2 mmol/L 3.5-5.1 N CHLORIDE (test code = CL) 101.0 mmol/L 98-107 N CARBON DIOXIDE (test code = CO2) 29.0 mmol/L 21-32 N ANION GAP (test code = GAP) 10.2 10-20 N GLUCOSE (test code = GLU) 165 mg/dL 74-106 H BLOOD UREA NITROGEN (test code = BUN) 15 mg/dL 7-18 N GLOMERULAR FILTRATION RATE (test code = GFR) > 60 mL/min >=60 Estimated GFR by using Modified MDRD formula.Chronic kidney disease is defined as either kidney damageor GFR <60 mL/min/1.73 m2 for >3 months. CREATININE (test code = CREAT) 0.70 mg/dL 0.55-1.02 N Note change in reference range due to change in reagent. BUN/CREATININE RATIO (test code = BUN/CREA) 21.4 10-20 H CALCIUM (test code = CA) 9.3 mg/dL 8.5-10.1 N HEPATIC FUNCTION [id number] 14:31:00* Test Item Value Reference Range Interpretation Comments TOTAL PROTEIN (test code = PROT) 7.3 gram/dL 6.4-8.2 N ALBUMIN (test code = ALB) 3.9 g/dL 3.4-5.0 N GLOBULIN (test code = GLOB) 3.4 gram/dL 2.7-4.2 N ALBUMIN/GLOBULIN RATIO (test code = A/G) 1.2 0.75-1.50 N BILIRUBIN TOTAL (test code = BILT) 0.30 mg/dL 0.0-1.0 N BILIRUBIN DIRECT (test code = BILD) 0.08 mg/dL 0.0-0.20 N SGOT/AST (test code = AST) 12 IUnit/L 15-37 L SGPT/ALT (test code = ALT) 20 IUnit/L 12-78 N ALKALINE PHOSPHATASE TOTAL (test code = ALKP) 102 IUnit/L 45-117 N Note change in reference range due to change in reagent. [id number] 14:31:00* Test Item Value Reference Range Interpretation Comments LIPASE (test code = LIP) 367 U/L 73.0-393.0 N HCG SERUM [id number] 14:31:00* Test Item Value Reference Range Interpretation Comments HCG SERUM QUAL (test code = HCGQL) NEGATIVE NEGATIVE This HCGQL test is NOT applicable for MALE patients.Check with nurse about probable order error.If Tumor Marker Test needed, nurse should order test "HCGTU"(Test #[id number]) [id number] 14:31:00* Test Item Value Reference Range Interpretation Comments TROPONIN-I (test code = TROPI) <0.015 ng/mL 0-0.045 N - CT ABD PELVIS [id number] 13:59:00 Name: MALAIKA GIBBS [facility] [employer] : 1965 Age/S: 54 / F [address] [facility] Unit #: [id number] Loc: [place] [address] Phys: Fadumo Anguiano MD Acct: [id number] Dis Date: Status: REG ER PHONE #: [phone] Exam Date: 10/30/2019 9634 FAX #: [phone] Reason: periumbilical pain for 1 week EXAMS: CPT CODE: [id number] CT ABD PELVIS W/CONT 37469 HISTORY: Periumbilical pain for one week. COMPARISON: CT scan from December 27, 2017. CT of abdomen and pelvis with IV contrast: 100 mL of Isovue-370. Automated exposure control. CT ABDOMEN: The lung bases are clear. The liver is enhancing homogeneously. No discrete parenchymal mass or nodules are noted. Portal vein and hepatic artery are patent. Patient is post cholecystectomy. The liver measured 15.7 cm in length. Spleen is unremarkable. The stomach distended incompletely however it is normal in appearance. Pancreas is enhancing homogeneously. Unremarkable adrenals. Kidneys are free from hydroureteronephrosis. Homogeneous enhancement. Bilateral excretion is noted. No pathologic adenopathy. Well-opacified abdominal and pelvic vasculature. Mild atherosclerotic change. No bowel obstruction or colitis or diverticulitis or enteritis. Constipation. CT PELVIS: The appendix is normal. Pelvic bowel loops are unobstructed. Unremarkable urinary bladder. Patient is post hysterectomy. No free fluid or free air or abscess. Phleboliths. Subcutaneous tissues and the musculature are normal in appearance. No lytic or blastic lesions are noted within the bony skeleton. IMPRESSION: No acute intra-abdominal or intrapelvic pathology. PAGE 1 Signed Report (CONTINUED) Name: MALAIKA GIBBS [facility] [employer] : 1965 Age/S: 54 / F [address] [facility] Unit #: [id number] Loc: [facility] [place] [address] Phys: Fadumo Anguiano MD Acct: [id number] Dis Date: Status: REG ER PHONE #: [phone] Exam Date: 10/30/2019 1304 FAX #: [phone] Reason: karishma umbilical pain for 1 week EXAMS: CPT CODE: [id number] CT ABD PELVIS W/CONT 59099 <Continued> at 1359 Reported and signed by: Simon Blum M.D. CC: Fadumo Anguiano MD Technologist:Jeremias Farooq RT(R),(MR),(CT) CTDI: DLP: Trnscb Date/Time: 10/30/2019 (9222) [email or web address] Orig Print D/T: S: 10/30/2019 (6143) PAGE 2 Signed Report BASIC METABOLIC [id number] 11:56:00* Test Item Value Reference Range Interpretation Comments SODIUM (test code = NA) 136 mmol/L 136-145 N POTASSIUM (test code = K) 4.2 mmol/L 3.5-5.1 N CHLORIDE (test code = CL) 101.0 mmol/L 98-107 N CARBON DIOXIDE (test code = CO2) 29.0 mmol/L 21-32 N ANION GAP (test code = GAP) 10.2 10-20 N GLUCOSE (test code = GLU) 165 mg/dL 74-106 H BLOOD UREA NITROGEN (test code = BUN) 15 mg/dL 7-18 N GLOMERULAR FILTRATION RATE (test code = GFR) > 60 mL/min >=60 Estimated GFR by using Modified MDRD formula.Chronic kidney disease is defined as either kidney damageor GFR <60 mL/min/1.73 m2 for >3 months. CREATININE (test code = CREAT) 0.70 mg/dL 0.55-1.02 N Note change in reference range due to change in reagent. BUN/CREATININE RATIO (test code = BUN/CREA) 21.4 10-20 H CALCIUM (test code = CA) 9.3 mg/dL 8.5-10.1 N HEPATIC FUNCTION [id number] 11:56:00* Test Item Value Reference Range Interpretation Comments TOTAL PROTEIN (test code = PROT) 7.3 gram/dL 6.4-8.2 N ALBUMIN (test code = ALB) 3.9 g/dL 3.4-5.0 N GLOBULIN (test code = GLOB) 3.4 gram/dL 2.7-4.2 N ALBUMIN/GLOBULIN RATIO (test code = A/G) 1.2 0.75-1.50 N BILIRUBIN TOTAL (test code = BILT) 0.30 mg/dL 0.0-1.0 N BILIRUBIN DIRECT (test code = BILD) 0.08 mg/dL 0.0-0.20 N SGOT/AST (test code = AST) 12 IUnit/L 15-37 L SGPT/ALT (test code = ALT) 20 IUnit/L 12-78 N ALKALINE PHOSPHATASE TOTAL (test code = ALKP) 102 IUnit/L 45-117 N Note change in reference range due to change in reagent. [id number] 11:56:00* Test Item Value Reference Range Interpretation Comments LIPASE (test code = LIP) 367 U/L 73.0-393.0 N HCG SERUM [id number] 11:56:00* Test Item Value Reference Range Interpretation Comments HCG SERUM QUAL (test code = HCGQL) NEGATIVE [id number] 11:56:00* Test Item Value Reference Range Interpretation Comments TROPONIN-I (test code = TROPI) <0.015 ng/mL 0-0.045 N URINALYSIS [id number] 11:38:00* Test Item Value Reference Range Interpretation Comments UA COLOR (test code = COLU) YELLOW YELLOW UA APPEARANCE (test code = APPU) CLEAR CLEAR UA GLUCOSE DIPSTICK (test code = DGLUU) NEGATIVE mg/dL NEGATIVE UA BILIRUBIN DIPSTICK (test code = BILU) NEGATIVE NEGATIVE UA KETONE DIPSTICK (test code = KETU) NEGATIVE mg/dL NEGATIVE UA SPECIFIC GRAVITY (test code = SGU) 1.010 1.001-1.035 UA BLOOD DIPSTICK (test code = KODI) TRACE NEGATIVE UA PH DIPSTICK (test code = AMANDA) 7.5 5.0-8.0 UA PROTEIN DIPSTICK (test code = PROU) NEGATIVE mg/dL Neg-15 UA UROBILINIOGEN DIPSTICK (test code = URO) 0.2 mg/dL 0.0-0.2 UA NITRITE DIPSTICK (test code = SHEN) NEGATIVE NEGATIVE UA LEUKOCYTE ESTERASE W REFLEX (test code = LEUUR) NEGATIVE NEG ATIVE UA WBC (test code = WBCU) per HPF 0-5 UA RBC (test code = RBCU) per HPF 0-5 UA EPITHELIAL CELLS (test code = EPIU) per HPF Few UA BACTERIA (test code = BACU) per HPF NONE Urine Source? Clean CatchURINALYSIS [id number] 11:38:00* Test Item Value Reference Range Interpretation Comments UA COLOR (test code = COLU) YELLOW YELLOW UA APPEARANCE (test code = APPU) CLEAR CLEAR UA GLUCOSE DIPSTICK (test code = DGLUU) NEGATIVE mg/dL NEGATIVE UA BILIRUBIN DIPSTICK (test code = BILU) NEGATIVE NEGATIVE UA KETONE DIPSTICK (test code = KETU) NEGATIVE mg/dL NEGATIVE UA SPECIFIC GRAVITY (test code = SGU) 1.010 1.001-1.035 UA BLOOD DIPSTICK (test code = KODI) TRACE NEGATIVE UA PH DIPSTICK (test code = AMANDA) 7.5 5.0-8.0 UA PROTEIN DIPSTICK (test code = PROU) NEGATIVE mg/dL Neg-15 UA UROBILINIOGEN DIPSTICK (test code = URO) 0.2 mg/dL 0.0-0.2 UA NITRITE DIPSTICK (test code = SHEN) NEGATIVE NEGATIVE UA LEUKOCYTE ESTERASE W REFLEX (test code = LEUUR) NEGATIVE NEG ATIVE UA WBC (test code = WBCU) 0-5 per HPF 0-5 UA RBC (test code = RBCU) 0-2 #/HPF 0-5 UA EPITHELIAL CELLS (test code = EPIU) FEW per HPF FEW UA BACTERIA (test code = BACU) FEW #/HPF NONE A Urine Source? Clean CatchCBC W/O [id number] 11:34:00* Test Item Value Reference Range Interpretation Comments WHITE BLOOD CELL (test code = WBC) 6.1 K/mm3 4.5-12.5 N RED BLOOD CELL (test code = RBC) 4.28 mill/mm3 3.7-5.2 N HEMOGLOBIN (test code = HGB) 12.0 gram/dL 11.5-15.5 N HEMATOCRIT (test code = HCT) 36.2 % 36.0-46.0 N MEAN CELL VOLUME (test code = MCV) 84.6 fL 80-98 N MEAN CELL HGB (test code = MCH) 28.0 picogram 27.0-33.0 N MEAN CELL HGB CONCETRATION (test code = MCHC) 33.1 gram/dL 33.0-36. 0 N RED CELL DISTRIBUTION WIDTH (test code = RDW) 12.4 % 11.6-16. 2 N PLATELET COUNT (test code = PLT) 348 K/mm3 150-450 N MEAN PLATELET VOLUME (test code = MPV) 10.2 fL 6.7-11.0 N - CT ABD PELVIS W/O [id number] 11:29:00 Name: MALAIKA GIBBS [facility] : 1965 Age/S: 53 / F [address] Unit #: [id number] Loc: [place] [address] Phys: Jimi Colvin MD Acct: [id number] Dis Date: Status: REG ER PHONE #: [phone] Exam Date: 07/19/2019 1117 FAX #: [phone] Reason: left flank pain EXAMS: CPT CODE: [id number] CT ABD PELVIS W/O CONT 95182 EXAM: CT of the abdomen and pelvis without contrast; INFORMATION: Left flank pain; TECHNIQUE: CT dose reduction protocol; Renal stone protocol; FINDINGS: The kidneys are of normal size and shape; no calcifications are most likely all related to arterial calcifications; no definite stones and no hydronephrosis. No evidence of ureteral stones. No evidence of appendicitis or other acute bowel abnormalities. Parenchymal organs of the abdomen and the biliary system are unremarkable. Status post cholecystectomy. Small calcified hepatic and splenic granulomas. No pelvic mass lesions; no abnormal fluid collections. Extensive calcifications of the visceral including renal arteries as well as of the iliofemoral arteries. Scans through the lung bases are clear. IMPRESSION: 1. Extensive arterial calcifications but no definite evidence of renal or ureteral stones or of obstructive uropat hy. 2. No evidence of acute abdominal or pelvic abnormalities. at 1129 Reported and sig angie by: Ankit French M.D. CC: Jimi Colvin MD Technologist:Donato Krishna RT(R)(CT) CTDI: DLP: Trnscb Date/Time: 07/19/2019 (1129) Nichelle Orig Print D/T: S: 07/19/2019 (6296) PAGE 1 Signed Report URINALYSIS [id number] 10:52:00* Test Item Value Reference Range Interpretation Comments UA COLOR (test code = COLU) Light-Yellow YELLOW UA APPEARANCE (test code = APPU) CLEAR CLEAR UA GLUCOSE DIPSTICK (test code = DGLUU) 100 (1+) mg/dL NEGATIVE A UA BILIRUBIN DIPSTICK (test code = BILU) NEGATIVE mg/dL NEGATIVE UA KETONE DIPSTICK (test code = KETU) NEGATIVE mg/dL NEGATIVE UA SPECIFIC GRAVITY (test code = SGU) 1.008 1.001-1.035 UA BLOOD DIPSTICK (test code = KODI) Negative mg/dL NEGATIVE UA PH DIPSTICK (test code = AMANDA) 6.0 5.0-8.0 UA PROTEIN DIPSTICK (test code = PROU) NEGATIVE mg/dL NEGATIVE UA UROBILINIOGEN DIPSTICK (test code = URO) Normal mg/dL NEGATIVE UA NITRITE DIPSTICK (test code = SHNE) NEGATIVE NEGATIVE UA LEUKOCYTE ESTERASE W REFLEX (test code = LEUUR) NEGATIVE Jacey/uL NEGATIVE UA WBC (test code = WBCU) 0-5 per HPF 0-5 UA RBC (test code = RBCU) 0-2 #/HPF 0-5 UA EPITHELIAL CELLS (test code = EPIU) FEW per HPF FEW UA BACTERIA (test code = BACU) NONE SEEN #/HPF NONE UA MUCUS (test code = MUCU) FEW #/LPF FEW Urine Source? Clean CatchURINALYSIS [id number] 10:39:00* Test Item Value Reference Range Interpretation Comments UA COLOR (test code = COLU) Light-Yellow YELLOW UA APPEARANCE (test code = APPU) CLEAR CLEAR UA GLUCOSE DIPSTICK (test code = DGLUU) 100 (1+) mg/dL NEGATIVE A UA BILIRUBIN DIPSTICK (test code = BILU) NEGATIVE mg/dL NEGATIVE UA KETONE DIPSTICK (test code = KETU) NEGATIVE mg/dL NEGATIVE UA SPECIFIC GRAVITY (test code = SGU) 1.008 1.001-1.035 UA BLOOD DIPSTICK (test code = KODI) Negative mg/dL NEGATIVE UA PH DIPSTICK (test code = AMANDA) 6.0 5.0-8.0 UA PROTEIN DIPSTICK (test code = PROU) NEGATIVE mg/dL NEGATIVE UA UROBILINIOGEN DIPSTICK (test code = URO) Normal mg/dL NEGATIVE UA NITRITE DIPSTICK (test code = SHEN) NEGATIVE NEGATIVE UA LEUKOCYTE ESTERASE W REFLEX (test code = LEUUR) NEGATIVE Jacey/uL NEGATIVE UA WBC (test code = WBCU) per HPF 0-5 UA RBC (test code = RBCU) per HPF 0-5 UA EPITHELIAL CELLS (test code = EPIU) per HPF Few UA BACTERIA (test code = BACU) per HPF NONE Urine Source? Clean CatchBASIC METABOLIC [id number] 10:37:00* Test Item Value Reference Range Interpretation Comments SODIUM (test code = NA) 138 mmol/L 136-145 N POTASSIUM (test code = K) 4.5 mmol/L 3.5-5.1 N CHLORIDE (test code = CL) 102.0 mmol/L 98-107 N CARBON DIOXIDE (test code = CO2) 28.0 mmol/L 21-32 N ANION GAP (test code = GAP) 12.5 10-20 N GLUCOSE (test code = GLU) 188 mg/dL 74-106 H BLOOD UREA NITROGEN (test code = BUN) 16 mg/dL 7-18 N GLOMERULAR FILTRATION RATE (test code = GFR) > 60 mL/min >=60 Estimated GFR by using Modified MDRD formula.Chronic kidney disease is defined as either kidney damageor GFR <60 mL/min/1.73 m2 for >3 months. CREATININE (test code = CREAT) 0.80 mg/dL 0.55-1.02 N Note change in reference range due to change in reagent. BUN/CREATININE RATIO (test code = BUN/CREA) 20.9 10-20 H CALCIUM (test code = CA) 9.8 mg/dL 8.5-10.1 N HEPATIC FUNCTION [id number] 10:37:00* Test Item Value Reference Range Interpretation Comments TOTAL PROTEIN (test code = PROT) 8.1 gram/dL 6.4-8.2 N ALBUMIN (test code = ALB) 4.3 g/dL 3.4-5.0 N GLOBULIN (test code = GLOB) 3.8 gram/dL 2.7-4.2 N ALBUMIN/GLOBULIN RATIO (test code = A/G) 1.1 0.75-1.50 N BILIRUBIN TOTAL (test code = BILT) 0.30 mg/dL 0.0-1.0 N BILIRUBIN DIRECT (test code = BILD) 0.10 mg/dL 0.0-0.20 N SGOT/AST (test code = AST) 19 IUnit/L 15-37 N SGPT/ALT (test code = ALT) 35 IUnit/L 12-78 N ALKALINE PHOSPHATASE TOTAL (test code = ALKP) 103 IUnit/L 45-117 N Note change in reference range due to change in reagent. [id number] 10:37:00* Test Item Value Reference Range Interpretation Comments LIPASE (test code = LIP) 181 U/L 73.0-393.0 N HCG SERUM [id number] 10:37:00* Test Item Value Reference Range Interpretation Comments HCG SERUM QUAL (test code = HCGQL) NEGATIVE NEGATIVE This HCGQL test is NOT applicable for MALE patients.Check with nurse about probable order error.If Tumor Marker Test needed, nurse should order test "HCGTU"(Test #550.86137) BASIC METABOLIC [id number] 10:32:00* Test Item Value Reference Range Interpretation Comments SODIUM (test code = NA) 138 mmol/L 136-145 N POTASSIUM (test code = K) 4.5 mmol/L 3.5-5.1 N CHLORIDE (test code = CL) 102.0 mmol/L 98-107 N CARBON DIOXIDE (test code = CO2) mmol/L 21-32 ANION GAP (test code = GAP) 10-20 GLUCOSE (test code = GLU) mg/dL 74-106 BLOOD UREA NITROGEN (test code = BUN) mg/dL 7-18 GLOMERULAR FILTRATION RATE (test code = GFR) mL/min >=60 CREATININE (test code = CREAT) mg/dL 0.55-1.02 BUN/CREATININE RATIO (test code = BUN/CREA) 10-20 CALCIUM (test code = CA) mg/dL 8.5-10.1 HEPATIC FUNCTION [id number] 10:32:00* Test Item Value Reference Range Interpretation Comments TOTAL PROTEIN (test code = PROT) gram/dL 6.4-8.2 ALBUMIN (test code = ALB) g/dL 3.4-5.0 GLOBULIN (test code = GLOB) gram/dL 2.7-4.2 ALBUMIN/GLOBULIN RATIO (test code = A/G) 0.75-1.50 BILIRUBIN TOTAL (test code = BILT) mg/dL 0.0-1.0 BILIRUBIN DIRECT (test code = BILD) mg/dL 0.0-0.20 SGOT/AST (test code = AST) IUnit/L 15-37 SGPT/ALT (test code = ALT) IUnit/L 12-78 ALKALINE PHOSPHATASE TOTAL (test code = ALKP) IUnit/L 45-117 [id number] 10:32:00* Test Item Value Reference Range Interpretation Comments LIPASE (test code = LIP) U/L 73.0-393.0 HCG SERUM [id number] 10:32:00* Test Item Value Reference Range Interpretation Comments HCG SERUM QUAL (test code = HCGQL) NEGATIVE NEGATIVE This HCGQL test is NOT applicable for MALE patients.Check with nurse about probable order error.If Tumor Marker Test needed, nurse should order test "HCGTU"(Test #550.34320) BASIC METABOLIC [id number] 10:28:00* Test Item Value Reference Range Interpretation Comments SODIUM (test code = NA) 138 mmol/L 136-145 N POTASSIUM (test code = K) 4.5 mmol/L 3.5-5.1 N CHLORIDE (test code = CL) 102.0 mmol/L 98-107 N CARBON DIOXIDE (test code = CO2) mmol/L 21-32 ANION GAP (test code = GAP) 10-20 GLUCOSE (test code = GLU) mg/dL 74-106 BLOOD UREA NITROGEN (test code = BUN) mg/dL 7-18 GLOMERULAR FILTRATION RATE (test code = GFR) mL/min >=60 CREATININE (test code = CREAT) mg/dL 0.55-1.02 BUN/CREATININE RATIO (test code = BUN/CREA) 10-20 CALCIUM (test code = CA) mg/dL 8.5-10.1 HEPATIC FUNCTION [id number] 10:28:00* Test Item Value Reference Range Interpretation Comments TOTAL PROTEIN (test code = PROT) gram/dL 6.4-8.2 ALBUMIN (test code = ALB) g/dL 3.4-5.0 GLOBULIN (test code = GLOB) gram/dL 2.7-4.2 ALBUMIN/GLOBULIN RATIO (test code = A/G) 0.75-1.50 BILIRUBIN TOTAL (test code = BILT) mg/dL 0.0-1.0 BILIRUBIN DIRECT (test code = BILD) mg/dL 0.0-0.20 SGOT/AST (test code = AST) IUnit/L 15-37 SGPT/ALT (test code = ALT) IUnit/L 12-78 ALKALINE PHOSPHATASE TOTAL (test code = ALKP) IUnit/L 45-117 [id number] 10:28:00* Test Item Value Reference Range Interpretation Comments LIPASE (test code = LIP) U/L 73.0-393.0 HCG SERUM [id number] 10:28:00* Test Item Value Reference Range Interpretation Comments HCG SERUM QUAL (test code = HCGQL) NEGATIVE CBC W/O [id number] 10:24:00* Test Item Value Reference Range Interpretation Comments WHITE BLOOD CELL (test code = WBC) 8.2 K/mm3 4.5-12.5 N RED BLOOD CELL (test code = RBC) 4.68 mill/mm3 3.7-5.2 N HEMOGLOBIN (test code = HGB) 13.1 gram/dL 11.5-15.5 N HEMATOCRIT (test code = HCT) 39.4 % 36.0-46.0 N MEAN CELL VOLUME (test code = MCV) 84.2 fL 80-98 N MEAN CELL HGB (test code = MCH) 28.0 picogram 27.0-33.0 N MEAN CELL HGB CONCETRATION (test code = MCHC) 33.2 gram/dL 33.0-36. 0 N RED CELL DISTRIBUTION WIDTH (test code = RDW) 12.8 % 11.6-16. 2 N PLATELET COUNT (test code = PLT) 416 K/mm3 150-450 N MEAN PLATELET VOLUME (test code = MPV) 10.4 fL 6.7-11.0 N - XR CHEST 2 [id number] 23:15:00 FAX: Paula El [phone] [place]: B St: REG Name: MALAIKA BEDOYA [facility] : [birth year] Age/S: 53/F [address] [facility] Unit #: [id number] Loc: [place] MAR[place] [address] Phys: Paula Stoner MD Acct: [id number] Dis Date: Status: REG ER PHONE #: [phone] Exam Date: 07/12/2019 2302 FAX #: [phone] Reason: CHEST PAIN EXAMS: CPT CODE: [id number] XR CHEST 2 V [id number] - XR CHEST 2 V, 07/12/2019 9:57 PM Reason For Examination: CHEST PAIN Comparison: January 10, 2017 Location: R16 Findings ISHAN NGS: No definite pulmonary edema or consolidation, although exam findings limited by low lung volumes PLEURA: No pleural effus ions CARDIOMEDIASTINAL SILHOUETTE Unremarkable IMPRESSION: No plain film evidence of acute cardiopulmona ry abnormality within the given limitations above El ectronically Signed by Penny Hardy M.D. on 0 07/12/2019 at 4700 Reported and signed by: Satish Hardy M.D. CC: Paula Stoner MD Technologist: [facility] Date/Time/By: 07/12/2019 (1806) : By: [email or web address] Orig Print D/T: S: 07/12/2019 (9890) PAGE 1 Signed Report DRUGS OF ABUSE SCREEN [id number] 22:41:00* Test Item Value Reference Range Interpretation Comments UA PH DIPSTICK (test code = AMANDA) 7.0 5.0-8.0 URN COCAINE (test code = COCAURN) NEGATIVE <300 ng/mL URN CANNABINOIDS (test code = CANNABURN) NEGATIVE <50 ng/mL URN AMPHETAMINE (test code = AMPHETURN) NEGATIVE <1000 ng/mL URN BARBITURATE (test code = BARBITURN) NEGATIVE <200 ng/mL URN BENZODIAZEPINE (test code = BENZOURN) NEGATIVE <200 ng/mL URN OPIATES (test code = OPIATURN) NEGATIVE <300 ng/mL URN PHENCYCLIDINE (PCP) (test code = PHENCURN) NEGATIVE <25 ng/ mL URN METHADONE (test code = METHAURN) NEGATIVE <300 ng/mL BASIC METABOLIC [id number] 22:39:00* Test Item Value Reference Range Interpretation Comments SODIUM (test code = NA) 144 mmol/L 136-145 N POTASSIUM (test code = K) 4.3 mmol/L 3.5-5.1 N CHLORIDE (test code = CL) 107.0 mmol/L 98-107 N CARBON DIOXIDE (test code = CO2) 27.0 mmol/L 21-32 N ANION GAP (test code = GAP) 14.3 10-20 N GLUCOSE (test code = GLU) 317 mg/dL 74-106 H BLOOD UREA NITROGEN (test code = BUN) 20 mg/dL 7-18 H GLOMERULAR FILTRATION RATE (test code = GFR) > 60 mL/min >=60 Estimated GFR by using Modified MDRD formula.Chronic kidney disease is defined as either kidney damageor GFR <60 mL/min/1.73 m2 for >3 months. CREATININE (test code = CREAT) 0.90 mg/dL 0.55-1.02 N Note change in reference range due to change in reagent. BUN/CREATININE RATIO (test code = BUN/CREA) 22.1 10-20 H CALCIUM (test code = CA) 9.6 mg/dL 8.5-10.1 N HCG SERUM [id number] 22:39:00* Test Item Value Reference Range Interpretation Comments HCG SERUM QUAL (test code = HCGQL) NEGATIVE NEGATIVE This HCGQL test is NOT applicable for MALE patients.Check with nurse about probable order error.If Tumor Marker Test needed, nurse should order test "HCGTU"(Test #550.61037) [id number] 22:39:00* Test Item Value Reference Range Interpretation Comments TROPONIN-I (test code = TROPI) <0.015 ng/mL 0-0.045 N DRUGS OF ABUSE SCREEN [id number] 22:38:00* Test Item Value Reference Range Interpretation Comments UA PH DIPSTICK (test code = AMANDA) 5.0-8.0 URN COCAINE (test code = COCAURN) NEGATIVE <300 ng/mL URN CANNABINOIDS (test code = CANNABURN) NEGATIVE <50 ng/mL URN AMPHETAMINE (test code = AMPHETURN) NEGATIVE <1000 ng/mL URN BARBITURATE (test code = BARBITURN) NEGATIVE <200 ng/mL URN BENZODIAZEPINE (test code = BENZOURN) NEGATIVE <200 ng/mL URN OPIATES (test code = OPIATURN) NEGATIVE <300 ng/mL URN PHENCYCLIDINE (PCP) (test code = PHENCURN) NEGATIVE <25 ng/ mL URN METHADONE (test code = METHAURN) NEGATIVE <300 ng/mL BASIC METABOLIC [id number] 22:34:00* Test Item Value Reference Range Interpretation Comments SODIUM (test code = NA) 144 mmol/L 136-145 N POTASSIUM (test code = K) 4.3 mmol/L 3.5-5.1 N CHLORIDE (test code = CL) 107.0 mmol/L 98-107 N CARBON DIOXIDE (test code = CO2) mmol/L 21-32 ANION GAP (test code = GAP) 10-20 GLUCOSE (test code = GLU) mg/dL 74-106 BLOOD UREA NITROGEN (test code = BUN) mg/dL 7-18 GLOMERULAR FILTRATION RATE (test code = GFR) mL/min >=60 CREATININE (test code = CREAT) mg/dL 0.55-1.02 BUN/CREATININE RATIO (test code = BUN/CREA) 10-20 CALCIUM (test code = CA) mg/dL 8.5-10.1 HCG SERUM [id number] 22:34:00* Test Item Value Reference Range Interpretation Comments HCG SERUM QUAL (test code = HCGQL) NEGATIVE NEGATIVE This HCGQL test is NOT applicable for MALE patients.Check with nurse about probable order error.If Tumor Marker Test needed, nurse should order test "HCGTU"(Test #550.09549) [id number] 22:34:00* Test Item Value Reference Range Interpretation Comments TROPONIN-I (test code = TROPI) ng/mL 0-0.045 BASIC METABOLIC [id number] 22:30:00* Test Item Value Reference Range Interpretation Comments SODIUM (test code = NA) 144 mmol/L 136-145 N POTASSIUM (test code = K) 4.3 mmol/L 3.5-5.1 N CHLORIDE (test code = CL) 107.0 mmol/L 98-107 N CARBON DIOXIDE (test code = CO2) mmol/L 21-32 ANION GAP (test code = GAP) 10-20 GLUCOSE (test code = GLU) mg/dL 74-106 BLOOD UREA NITROGEN (test code = BUN) mg/dL 7-18 GLOMERULAR FILTRATION RATE (test code = GFR) mL/min >=60 CREATININE (test code = CREAT) mg/dL 0.55-1.02 BUN/CREATININE RATIO (test code = BUN/CREA) 10-20 CALCIUM (test code = CA) mg/dL 8.5-10.1 HCG SERUM [id number] 22:30:00* Test Item Value Reference Range Interpretation Comments HCG SERUM QUAL (test code = HCGQL) NEGATIVE [id number] 22:30:00* Test Item Value Reference Range Interpretation Comments TROPONIN-I (test code = TROPI) ng/mL 0-0.045 URINALYSIS [id number] 22:24:00* Test Item Value Reference Range Interpretation Comments UA COLOR (test code = COLU) COLORLESS YELLOW A UA APPEARANCE (test code = APPU) CLEAR CLEAR UA GLUCOSE DIPSTICK (test code = DGLUU) 500 (3+) mg/dL NEGATIVE A UA BILIRUBIN DIPSTICK (test code = BILU) NEGATIVE mg/dL NEGATIVE UA KETONE DIPSTICK (test code = KETU) NEGATIVE mg/dL NEGATIVE UA SPECIFIC GRAVITY (test code = SGU) 1.004 1.001-1.035 UA BLOOD DIPSTICK (test code = KODI) 0.03 mg/dL (Trace) mg/dL NEGATI VE A UA PH DIPSTICK (test code = AMANDA) 7.0 5.0-8.0 UA PROTEIN DIPSTICK (test code = PROU) 10 (Trace) mg/dL NEGATIVE A UA UROBILINIOGEN DIPSTICK (test code = URO) Normal mg/dL NEGATIVE UA NITRITE DIPSTICK (test code = SHEN) NEGATIVE NEGATIVE UA LEUKOCYTE ESTERASE W REFLEX (test code = LEUUR) NEGATIVE Jacey/uL NEGATIVE UA WBC (test code = WBCU) 0-5 per HPF 0-5 UA RBC (test code = RBCU) 0-2 #/HPF 0-5 UA EPITHELIAL CELLS (test code = EPIU) FEW per HPF FEW UA BACTERIA (test code = BACU) NONE SEEN #/HPF NONE Urine Source? Clean CatchCBC W/O [id number] 22:22:00* Test Item Value Reference Range Interpretation Comments WHITE BLOOD CELL (test code = WBC) 7.3 K/mm3 4.5-12.5 N RED BLOOD CELL (test code = RBC) 4.37 mill/mm3 3.7-5.2 N HEMOGLOBIN (test code = HGB) 12.4 gram/dL 11.5-15.5 N HEMATOCRIT (test code = HCT) 36.6 % 36.0-46.0 N MEAN CELL VOLUME (test code = MCV) 83.8 fL 80-98 N MEAN CELL HGB (test code = MCH) 28.4 picogram 27.0-33.0 N MEAN CELL HGB CONCETRATION (test code = MCHC) 33.9 gram/dL 33.0-36. 0 N RED CELL DISTRIBUTION WIDTH (test code = RDW) 12.4 % 11.6-16. 2 N PLATELET COUNT (test code = PLT) 378 K/mm3 150-450 N MEAN PLATELET VOLUME (test code = MPV) 9.8 fL 6.7-11.0 N CBC W/O [id number] 22:20:00* Test Item Value Reference Range Interpretation Comments WHITE BLOOD CELL (test code = WBC) K/mm3 4.5-12.5 RED BLOOD CELL (test code = RBC) mill/mm3 3.7-5.2 HEMOGLOBIN (test code = HGB) 12.4 gram/dL 11.5-15.5 N HEMATOCRIT (test code = HCT) 36.6 % 36.0-46.0 N MEAN CELL VOLUME (test code = MCV) fL 80-98 MEAN CELL HGB (test code = MCH) picogram 27.0-33.0 MEAN CELL HGB CONCETRATION (test code = MCHC) gram/dL 33.0-36. 0 RED CELL DISTRIBUTION WIDTH (test code = RDW) % 11.6-16. 2 PLATELET COUNT (test code = PLT) K/mm3 150-450 MEAN PLATELET VOLUME (test code = MPV) fL 6.7-11.0 URINALYSIS [id number] 22:19:00* Test Item Value Reference Range Interpretation Comments UA COLOR (test code = COLU) COLORLESS YELLOW A UA APPEARANCE (test code = APPU) CLEAR CLEAR UA GLUCOSE DIPSTICK (test code = DGLUU) 500 (3+) mg/dL NEGATIVE A UA BILIRUBIN DIPSTICK (test code = BILU) NEGATIVE mg/dL NEGATIVE UA KETONE DIPSTICK (test code = KETU) NEGATIVE mg/dL NEGATIVE UA SPECIFIC GRAVITY (test code = SGU) 1.004 1.001-1.035 UA BLOOD DIPSTICK (test code = KODI) 0.03 mg/dL (Trace) mg/dL NEGATI VE A UA PH DIPSTICK (test code = AMANDA) 7.0 5.0-8.0 UA PROTEIN DIPSTICK (test code = PROU) 10 (Trace) mg/dL NEGATIVE A UA UROBILINIOGEN DIPSTICK (test code = URO) Normal mg/dL NEGATIVE UA NITRITE DIPSTICK (test code = SHEN) NEGATIVE NEGATIVE UA LEUKOCYTE ESTERASE W REFLEX (test code = LEUUR) NEGATIVE Jacey/uL NEGATIVE UA WBC (test code = WBCU) per HPF 0-5 UA RBC (test code = RBCU) per HPF 0-5 UA EPITHELIAL CELLS (test code = EPIU) per HPF Few UA BACTERIA (test code = BACU) per HPF NONE Urine Source? Clean Catch
== END | disposition home or self-care (01) ==
LOC: FSED 18:34
DX: N39.0 Urinary tract infection, site not specified (principal); M54.5 Low back pain; R11.0 Nausea; R19.7 Diarrhea, unspecified; K21.9 Gastro-esophageal reflux disease without esophagitis; I10 Essential (primary) hypertension; E11.9 Type 2 diabetes mellitus without complications; F41.9 Anxiety disorder, unspecified; F32.9 Major depressive disorder, single episode, unspecified
CPT/HCPCS: 81003; 99283

== ENCOUNTER 2020-07-23 19:15 | Emergency (ER) | payer OTHER ==
[~2020-07-23] VITALS: Ht 157.5 cm; Wt 63.5 kg
[~2020-07-23 19:15] MED LIST changes: -LIDOCAINE VISC 2% SOLN 15 ML UDC ONE; -MAGNESIUM/ALUMINUM/SIMETHICONE 30 ML UDC ONE; -METHYLPREDNISOLONE SOD SUCC 125 MG/2ML VIAL ONE; -ONDANSETRON HCL INJ 2MG/ML 2ML 2 MG/ML VIAL ONE; -SODIUM CHLORIDE 0.9% 1000ML 1,000 ML ONE
== END 2020-07-23 21:25 | disposition home or self-care (01) ==
LOC: FSED 19:40
DX: M79.671 Pain in right foot (principal); S92.334A Nondisplaced fracture of third metatarsal bone, right foot, initial encounter for closed fracture; X58.XXXA Exposure to other specified factors, initial encounter; I10 Essential (primary) hypertension; E11.9 Type 2 diabetes mellitus without complications; F41.9 Anxiety disorder, unspecified; F32.9 Major depressive disorder, single episode, unspecified; K21.9 Gastro-esophageal reflux disease without esophagitis
CPT/HCPCS: 36415; 82948; 99283

== ENCOUNTER 2020-11-03 11:44 | Emergency (ER) | payer OTHER ==
[~2020-11-03] VITALS: Ht 157.5 cm; Wt 65.5 kg
[2020-11-03] MEDS ORDERED: AMLODIPINE BESYL5 MG PO (12:12)
[2020-11-03] MEDS ORDERED: HUMULIN-R100 UNITS/ SQ (12:12)
[2020-11-03] MEDS ORDERED: METFORMIN HCL500 M2 PO (12:12)
[2020-11-03] MEDS ORDERED: LISINOPRIL2.5 MG PO (12:12)
[2020-11-03] MEDS ORDERED: KETOROLAC TROMETHAMINE 60 MG/2 ML VIAL IM ONE (12:15)
[2020-11-03] MEDS ORDERED: KETOROLAC TROMETHAMINE 60 MG/2 ML VIAL ONE (13:01)
[2020-11-03] MEDS ORDERED: CIPRO500 MG PO (13:19)
[2020-11-03 13:34] VITALS: BP 154/79
[2020-11-03] MEDS ORDERED: TYLENOL # 31 EA PO (13:38)
== END 2020-11-03 13:35 | disposition home or self-care (01) ==
LOC: FSED 12:05
DX: R10.9 Unspecified abdominal pain (principal); I10 Essential (primary) hypertension; E11.9 Type 2 diabetes mellitus without complications; F41.9 Anxiety disorder, unspecified; K21.9 Gastro-esophageal reflux disease without esophagitis
CPT/HCPCS: 74176; 81003; 96372; 99283; J1885